=== PATIENT | male | born 1950 | race Caucasian/White ===

== ENCOUNTER 2016-10-13 10:04 | Day surgery (SDC) | payer MEDICARE ==
[~2016-10-13 10:04] MED LIST: ASPIRIN325 M1 PO; ATORVASTATIN CA40 MG PO; BACTRIM DS 8001 TAB PO; CIPRO 500MG TA500 MG PO; CLOPIDOGREL75 M2 PO; HYCODAN 5MG. TAB5 MG PO; KEFLEX 500MG.500 MG PO; LISINOPRIL2.5 M1 PO; LOPRESSOR 25MG.25 MG PO; MEDROL 4MG. DOSE4 MG PO; PREDNISONE 20MG20 MG PO; TESSALON PERLE100 MG PO
--- NOTE | 2016-10-13 11:53 | Operative Note ---
Colonoscopy ([facility]) Procedure date: 10/13/16 Date of : 54 Procedure:Colonoscopy Colonoscopy with cold snare polypectomy Indications: Mr. Benites is a 65-year-old gentleman who is here for initial screening colonoscopy. He reports no abdominal pain, weight loss, change in his bowel habits or rectal bleeding. He reports no family history of colon cancer. Performing Provider: Vivian Patterson MD Referrring Provider: Edith Henderson PA-C Sedation: Fentanyl 100 mg IV/Versed 7 mg IV Procedure: Prior to the procedure, a history and physical exam was performed, and patient medications and allergies were reviewed. The risks and benefits of the procedure and the sedation options and risks were discussed with the patient. All questions were answered and informed consent was obtained. Patient identification and proposed procedure were verified by the physician and the nurse. The patient was placed in a left lateral decubitus position. Throughout the procedure, the patient's blood pressure, pulse, and oxygen saturations were monitored continuously. Findings: On digital rectal examination there was normal rectal tone. There were no external hemorrhoids. The colonoscope was introduced through the anal canal to the rectum and advanced to the cecum. The ileocecal valve and appendiceal orifice were identified. The scope was advanced a short distance into the ileum which appeared grossly normal. The scope was then withdrawn into the colon. There were 3 diminutive colon polyps identified in the ascending 1, transverse cold snare polypectomy. There were scattered diverticuli throughout the descending and sigmoid colon (LEFT colon). The rectum itself was normal. Upon retroflexion within the rectum there were grade 1 internal hemorrhoids. Impressions: 1. Diminutive colonic polyps 3 2. Left-sided diverticulosis 3. Grade 1 internal hemorrhoids Recommendations: I will follow up the polyp pathology and recommend repeat colonoscopy again in 5 years based upon the polyp histology. I would encourage fiber supplementation on a long-term daily maintenance basis. Complications: None EBL (ml): 0 at 1152
[2016-10-13 15:10] VITALS: BP 141/89
== END 2016-10-13 12:50 | disposition home or self-care (01) ==
LOC: SDC 10:04
PROVIDERS: Internal Medicine Gastroenterology
PROC: 0DBM8ZX Excision of Descending Colon, Via Natural or Artificial Opening Endoscopic, Diagnostic (ICD-10-PCS; 2016-10-13)
PROC: 0DBL8ZX Excision of Transverse Colon, Via Natural or Artificial Opening Endoscopic, Diagnostic (ICD-10-PCS; 2016-10-13)
PROC: 0DBK8ZX Excision of Ascending Colon, Via Natural or Artificial Opening Endoscopic, Diagnostic (ICD-10-PCS; principal; 2016-10-13 11:00)
DX: Z12.11 Encounter for screening for malignant neoplasm of colon (principal); D12.2 Benign neoplasm of ascending colon; D12.3 Benign neoplasm of transverse colon; D12.4 Benign neoplasm of descending colon; K57.30 Diverticulosis of large intestine without perforation or abscess without bleeding; K64.0 First degree hemorrhoids